=== PATIENT | male | born 1995 | race Caucasian/White ===

== ENCOUNTER 2019-10-15 14:04 | Emergency (ER) | payer SELFPAY ==
[~2019-10-15] VITALS: Ht 175.3 cm; Wt 82.0 kg
[2019-10-15 14:06] VITALS: BP 115/59
== END 2019-10-15 15:37 | disposition left against medical advice (07) ==
LOC: ER 14:04
DX: R07.89 Other chest pain (principal); Z53.21 Procedure and treatment not carried out due to patient leaving prior to being seen by health care provider